=== PATIENT | male | born 1990 ===

== ENCOUNTER 2019-12-08 11:42 | Outpatient (REF) | payer OTHER, SELFPAY ==
[2019-12-11 20:40] LABS: SARS-CoV-2 RNA Undetected (Undetected); SARS-CoV-2 Specimen Source Nasal
== END 2019-12-08 12:02 ==
LOC: NCHCN 11:42
PROVIDERS: PCP Physician Assistant; Visit Provider Physician Assistant
DX: Z20.828 Contact with and (suspected) exposure to other viral communicable diseases (principal)
CPT/HCPCS: U0003

== ENCOUNTER 2020-01-11 12:17 | Outpatient (REF) | payer OTHER, SELFPAY ==
[2020-01-14 18:04] LABS: SARS-CoV-2 RNA Undetected (Undetected); SARS-CoV-2 Specimen Source Nasal
== END 2020-01-11 12:37 ==
LOC: NCHCN 12:17
PROVIDERS: PCP Physician Assistant; Visit Provider Physician Assistant
DX: Z20.828 Contact with and (suspected) exposure to other viral communicable diseases (principal)
CPT/HCPCS: U0003